=== PATIENT | female | born 1990 | race Caucasian/White ===

== ENCOUNTER 2018-07-06 08:33 | Inpatient (IN) | payer OTHER ==
[~2018-07-06] VITALS: Ht 165.1 cm; Wt 82.6 kg
[2018-07-06] MEDS ORDERED: PREN-93 PO (09:07)
[2018-07-06] MEDS ORDERED: FER325 PO (09:07)
[2018-07-06 09:08] VITALS: BP 124/75; PULSE 95; RESP 20; Ht 165.1 cm; Wt 82.6 kg
[2018-07-06] MEDS ORDERED: LIDOCAINE 1% (MPF) 30 ML INJ INJ PRN (12:00)
[2018-07-06] MEDS ORDERED: BUTORPHANOL 2 MG INJ IV PRN (12:00)
[2018-07-06] MEDS ORDERED: METHYLERGONOVINE 0.2 MG INJ IM PRN (12:00)
[2018-07-06] MEDS ORDERED: CARBOPROST 250 MCG INJ IM PRN (12:00)
[2018-07-06] MEDS ORDERED: IBUPROFEN 600 MG TAB PO PRN (12:00)
[2018-07-06] MEDS ORDERED: OXYTOCIN 30 UNITS/LR 500 ML IV SCH ×2 (12:00)
[2018-07-06] MEDS ORDERED: OXYTOCIN 30 UNITS/LR 500 ML IV PRN (12:00)
[2018-07-06] MEDS ORDERED: MISOPROSTOL 200 MCG TAB PR PRN (12:00)
--- NOTE | 2018-07-06 12:36 | TRIAGE ---
OB Triage Datetime Report Generated by CPN: 07/06/2018 12:35 Datetime: 07/06/2018 11:59 Comments: Report to [facility] L_D RN Datetime: 07/06/2018 11:45 Labor Evaluation Frequency: 2-12 Monitor Mode: External Duration (sec)2399: 40-60 Quality: Mild Pattern: Normal: <= 5 Contractions in 10 Minutes Resting Tone [place]: Relaxed Heart Rate FHR Baseline Rate: 135 Monitor Mode: External US FHR Baseline Changes: No Baseline Change Variability: Moderate 6-25 bpm Accelerations: 15X15 Decelerations: None Category: Category I Pain Assessment Pain Scale: 0 Pain Presence: None/Denies Pain Type: N/A Pain Goal: 3 Datetime: 07/06/2018 11:35 Vaginal Exam Dilatation (cms): 1.0 Effacement (%): 50 Exam By: Dr. Delshad Datetime: 07/06/2018 11:34 Comments: Dr. Delshad at bedside to review strip and u/s results. New order to admit pt for inducti on of labor Datetime: 07/06/2018 11:00 Labor Evaluation Frequency: x3 Monitor Mode: External Duration (sec)2399: 50-80 Quality: Mild Pattern: Normal: <= 5 Contractions in 10 Minutes Resting Tone [place]: Relaxed Heart Rate FHR Baseline Rate: 135 Monitor Mode: External US FHR Baseline Changes: No Baseline Change Variability: Moderate 6-25 bpm Accelerations: 15X15 Decelerations: None Category: Category I Pain Assessment Pain Scale: 0 Pain Presence: None/Denies Pain Type: N/A Pain Goal: 3 Datetime: 07/06/2018 10:03 EGA: 40.2 Datetime: 07/06/2018 10:00 Labor Evaluation Frequency: X1 Duration (sec)2399: 40 Quality: Mild Pattern: Normal: <= 5 Contractions in 10 Minutes Resting Tone [place]: Relaxed Heart Rate FHR Baseline Rate: 135 Monitor Mode: External US FHR Baseline Changes: No Baseline Change Variability: Moderate 6-25 bpm Accelerations: 15X15 Decelerations: None Category: Category I Datetime: 07/06/2018 09:55 Comments: Dr. De Leon was informed of pt's arrival to unit with orders for EFW and BPP for postdate s. EFW 4349, BPP 8/8, RHONDA 11.56. MD stated he is coming to see pt. No new orders received Datetime: 07/06/2018 09:50 Comments: Dr. De Leon paged regarding u/s results Datetime: 07/06/2018 09:25 Comments: Right tilt Datetime: 07/06/2018 09:05 Comments: Ultrasound in progress Datetime: 07/06/2018 09:04 Labor Evaluation Frequency: x1 Duration (sec)2399: 70 Quality: Mild Pattern: Normal: <= 5 Contractions in 10 Minutes Resting Tone [place]: Relaxed Heart Rate FHR Baseline Rate: 140 Monitor Mode: External US FHR Baseline Changes: No Baseline Change Variability: Moderate 6-25 bpm Accelerations: 15X15 Decelerations: None Category: Category I Pain Assessment Pain Scale: 0 Pain Presence: None/Denies Pain Type: N/A Pain Goal: 3 Datetime: 07/06/2018 08:53 EGA: 40.2 Datetime: 07/06/2018 08:47 Stage of : OB Triage Assessment Type: Triage Maternal Assessment Level of Consciousness: Fully Conscious DTR's/Clonus: DTRs 2+; No Clonus Headache: Denies Blurred Vision: No Respiratory Effort: Unlabored; Regular Rhythm; Equal Expansion Breath Sounds, Left: Clear and Equal Breath Sounds, Right: Clear and Equal Nausea/Vomiting: Denies RUQ Epigastric Pain: Denies Lower Extremities Edema: None Upper Extremities Edema: None Facial Edema: None Temperature Route: Axillary Fall Risk Assessment History of Falling: (0) No Secondary Diagnosis: (0) No Ambulatory Aid: (0) Bedrest/Nurse Assist IV Therapy: (0) No Gait: (0) Normal/Bedrest/Immobile Mental Status: (0) Oriented to Own Ability Fall Score: 0 Fall Risk Score Definition: No Risk: No action required Pain Assessment Pain Scale: 0 Pain Presence: None/Denies Pain Type: N/A Pain Goal: 3 Datetime: 07/06/2018 08:44 Stage of : OB Triage Time of Arrival: 07/07/2018 08:26 Arrived By: Ambulatory Arrived From: Home Chief Complaint: Post Dates Movement: Present Contractions: Denies/Absent Rupture of Membranes: Denies Vaginal Bleeding: None Vaginal Discharge: Denies Recent Sexual Intercouse: Denies Abdominal Trauma: Not Applicable Patient Complaints: None Initial Plan: NST, BPP, EFW Temperature Route: Oral Datetime: 07/06/2018 08:26 Stage of : OB Triage
[2018-07-06] MEDS: MISOPROSTOL 50 MCG CAPSULE PO PRN (13:53)
--- NOTE | 2018-07-06 14:09 | HP ---
Date/Time of Note Date/Time of Note DATE: 07/06/18 TIME: 14:07 OB - History Hx of Present Chief Complaint: post date Estimated Due Date: Jul 05, 2018 : 4 Para: 2 Spontaneous : 0 Therapeutic : 1 Care: Good Care Ultrasounds: Normal mid trimester US Obstetrical Complications: None Medical Complications: None Past Family/Social History * Past Medical, Surgical, Family and Obstetric Histories reviewed from chart. GBS Status: Negative OB Admission Exam Vital Signs Vital Signs Vital Signs Date Temp Pulse Resp B/P (MAP) Pulse Ox O2 O2 Flow FiO2 Time Delivery Rate 07/06/18 98.1 95 20 124/75 Room Air 09:08 (91) Physical Exam HEENT: WNL Heart: Rhythm Normal Lungs: Clear, Equal Abdomen: WNL Extremities: Normal Reflexes: Normal Cervical Dilatation: 1cm Effacement: 50% Station: -2 Membranes: Intact Heart Rate: 120's Accelerations: Accelerations Present Decelerations: No Decelerations Varibility: Moderate Last 72 hourBlood Glucose Bedside Glucose - 72 Hours Test 07/06/18 13:57 Bedside Glucose 84 mg/dL (70-220) Last 72 hours Lab Results CBC & BMP 07/06/18 13:44 OB Assessment/Plan Reason for admission: induction of labor Plan: Induction Induction Method: per Misoprostol Protocol SONIA BROWN MD Jul 06, 2018 14:09
[2018-07-06] MEDS: LACTATED RINGER'S 1,000 ML IV SCH ×3 (14:32→21:35)
--- NOTE | 2018-07-06 20:16 | PREAC ---
Date/Time of Note Date/Time of Note DATE: 07/06/18 TIME: 20:15 Anesthesia Eval and Record Evaluation Time Pre-Procedure Interview DATE: 07/06/18 TIME: 20:15 Age 28 Sex female NPO: 8 hrs Preoperative diagnosis labor pain Planned procedure labor epidural Past Medical History Past Medical History: None Surgery & Anesthesia Issues No known issue Meds Anticoagulation: No Beta Kristin within 24 hr: No Reason Beta Kristin not given: Pt. not on B-Kristin Reported Medications Ferrous Sulfate* (Ferrous Sulfate*) 325 Mg Tabec, 325 MG PO DAILY, TAB 07/06/18 Vit No.124/Iron/FA ( Vitamin Tablet) 1 Each Tablet, 1 EACH PO, TAB 07/06/18 Current Medications Lactated Ringer's 1,000 ml @ 125 mls/hr Q8H IV Last administered on 07/06/18at 19:33; Admin Dose 125 MLS/HR; Start 07/06/18 at 11:48 Butorphanol Tartrate (Stadol) 2 mg Q2H PRN IV .PAIN; Start 07/06/18 at 12:00 Lidocaine (Xylocaine 1% (Mpf)) 30 ml ONCE PRN INJ .EPISIOTOMY; Start 07/06/18 at 12:00 Oxytocin/Lactated Ringer's 500 ml @ 500 mls/hr ONCE POST IV ; Start 07/06/18 at 12:00 Oxytocin/Lactated Ringer's 500 ml @ 125 mls/hr POST IV ; Start 07/06/18 at 12:00 Ibuprofen (Motrin) 600 mg ONCE PRN PO .PAIN 1-5; Start 07/06/18 at 12:00 Oxytocin/Lactated Ringer's 500 ml @ 0 mls/hr ONCE PRN IV .VAGINAL BLEEDING; Start 07/06/18 at 12:00 Methylergonovine Maleate (Methergine) 0.2 mg ONCE PRN IM .VAGINAL BLEEDING; Start 07/06/18 at 12:00 Carboprost Tromethamine (Hemabate) 250 mcg ONCE PRN IM .VAGINAL BLEEDING; Start 07/06/18 at 12:00 Misoprostol (Cytotec) 1,000 mcg ONCE PRN NV .VAGINAL BLEEDING; Start 07/06/18 at 12:00 Misoprostol (Cytotec 50 Mcg Capsule) 50 mcg ONCE PRN PO Max of 6 doses Last administered on 07/06/18at 13:53; Admin Dose 50 MCG; Start 07/06/18 at 12:00; Stop 07/07/18 at 23:00 Meds reviewed: Yes Allergies Coded Allergies: No Known Allergies (Verified Allergy, Unknown, 07/06/18) Allergies Reviewed: Yes Labs/Studies Labs Reviewed: Reviewed by anesthesiologist Result Diagram: 07/06/18 1344 Laboratory Tests 07/06/18 13:44 Blood Bank Test 07/06/18 13:44 Antibody Screen NEGATIVE Blood Type O POSITIVE Rh Immune Globulin Candidate NO test: Positive Pre-procedure Exam Last vitals Vital Signs Date Temp Pulse Resp B/P (MAP) Pulse Ox O2 O2 Flow FiO2 Time Delivery Rate 07/06/18 98.1 95 20 124/75 Room Air 09:08 (91) Airway: Adequate mouth opening, Adequate thyromental dist Mallampati: Mallampati III Teeth: Normal Lung: Normal Heart: Normal ASA Physical Status ASA physical status: 2 Emergency: None Planned Anesthetic Neuraxial: Epidural Planned Pain Management Epidural, Parenteral pain med Pre-operative Attestations Prior to commencing anesthesia and surgery, the patient was re-evaluated, there was verification of: *The patient's identity *The results of appropriate recent lab work and preoperative vital signs *The above evaluation not changing prior to induction *Anesthetic plan, risk benefits, alternative and complications discussed with patient/family; questions answered; patient/family understands, accepts and wishes to proceed. REFUGIO BRUNNER MD Jul 06, 2018 20:16
[2018-07-06] MEDS ORDERED: HYDROmorphONE 0.5 MG/0.5 ML SYG IV PRN ×2 (20:30)
[2018-07-06] MEDS ORDERED: ONDANSETRON 4 MG INJ IV PRN (20:30)
[2018-07-06] MEDS ORDERED: ZOLPIDEM 5 MG TAB PO PRN (20:30)
[2018-07-06] MEDS ORDERED: KETOROLAC 30 MG INJ IV PRN (20:30)
[2018-07-06] MEDS ORDERED: NALOXONE (0.4 MG/ML) INJ IV PRN (20:30)
[2018-07-06] MEDS ORDERED: DIPHENHYDRAMINE 50 MG INJ IV PRN (20:30)
--- NOTE | 2018-07-06 23:12 | PAC ---
Date/Time of Note Date/Time of Note DATE: 07/06/18 TIME: 23:11 Post-Anesthesia Notes Post-Anesthesia Note Last documented vital signs Vital Signs Date Temp Pulse Resp B/P (MAP) Pulse Ox O2 O2 Flow FiO2 Time Delivery Rate 07/06/18 98.1 95 20 124/75 Room Air 09:08 (91) Activity: WNL Respiratory function: WNL Cardiovascular function: WNL Mental status: Baseline Pain reasonably controlled: Yes Hydration appropriate: Yes Nausea/Vomiting absent: Yes REFUGIO BRUNNER MD Jul 06, 2018 23:12
[2018-07-07] MEDS: FENTAnyl 2MCG/ML-ROPIV 0.2% 100 ML BAG EPI SCH ×2 (05:18→13:51)
[2018-07-07] MEDS: LACTATED RINGER'S 1,000 ML IV SCH ×2 (05:19→13:49)
[2018-07-07] MEDS: MISOPROSTOL 50 MCG CAPSULE PO PRN ×2 (05:24→09:31)
[2018-07-07] MEDS ORDERED: OXYTOCIN 30 UNITS/LR 500 ML IV SCH (15:00)
--- NOTE | 2018-07-07 20:31 | LDN ---
Date/Time of Note Date/Time of Note DATE: 07/07/18 TIME: 20:27 Delivery Summary 28-year-old 4 para 2-0-1-2 with single intrauterine at 40 weeks and 2 days delivered a viable female over 1 cm first-degree laceration at fourchette. There was a tight nuchal cord which clamp and caught. Rest of body delivered. Baby given to the nurse. Placenta delivered intact and spontaneously with three-vessel cord. Laceration repaired with the 3-0 chromic SH needle. Patient tolerated procedure well Time of delivery 19:09 Weight 9 pound 2 ounces - 4140 g 8 at 1 minutes and 9 at 5 minutes EBL 400 mL Weeks of Gestation 40 weeks and 2 days Placenta Delivered: Spontaneously Meconium: none Episiotomy: No Estimated blood loss: 400 Sponge & Needle done & correct: Yes All needle counts correct: Yes Any foreign bodies felt in the: No Delivery Information Sex Infant Sex: female Apgars 1 Minute: 8 5 Minute: 9 10 Minute: 10 Suctioning Nose & mouth suctioned at richie: Yes Umbilical Cord Umbilical cord with: 3 Vessels Cord presentations: nuchal cord Nuchal cord present X: 1 Cord Blood was obtained: Yes Mother & Baby Disposition Disposition Mom & Baby to Maternity; Good: Yes ESTEFANY SIGALA Jul 07, 2018 20:31
[2018-07-07 21:00] VITALS: BP 127/79; PULSE 83; RESP 18
[2018-07-07] MEDS: DEXTROSE 5%-LR 1,000 ML IV SCH (21:08)
[2018-07-07] MEDS: LACTATED RINGER'S 1,000 ML IV* SCH (21:08)
[2018-07-07] MEDS ORDERED: ACETAMINOPHEN 325 MG TAB PO PRN (21:30)
[2018-07-07] MEDS ORDERED: DIPHENHYDRAMINE 50 MG INJ IV PRN (21:30)
[2018-07-07] MEDS ORDERED: LANOLIN HPA 1 PKT TOP PRN (21:30)
[2018-07-07] MEDS ORDERED: OXYTOCIN 30 UNITS/LR 500 ML IV PRN (21:30)
[2018-07-07] MEDS ORDERED: CARBOPROST 250 MCG INJ IM PRN (21:30)
[2018-07-07] MEDS ORDERED: ZOLPIDEM 5 MG TAB PO PRN (21:30)
[2018-07-07] MEDS ORDERED: MISOPROSTOL 200 MCG TAB PR PRN (21:30)
[2018-07-07] MEDS ORDERED: WITCH HAZEL/GLYCERIN PAD PR PRN (21:30)
[2018-07-07] MEDS ORDERED: METHYLERGONOVINE 0.2 MG INJ IM PRN (21:30)
[2018-07-07] MEDS ORDERED: OXYCODONE/ASPIRIN (4.88/325) TAB PO PRN (21:30)
[2018-07-07] MEDS ORDERED: BENZOCAINE 20% 56 ML SPRAY TOP PRN (21:30)
[2018-07-07] MEDS ORDERED: DIBUCAINE 1% 30 GM OINT TOP PRN (21:30)
[2018-07-07] MEDS ORDERED: SENNA/DOCUSATE NA (8.6MG/50MG) TAB PO PRN (21:30)
[2018-07-07] MEDS ORDERED: ONDANSETRON 4 MG INJ IV PRN (21:30)
[2018-07-07] MEDS: IBUPROFEN 600 MG TAB PO SCH (23:42)
[2018-07-08 02:09] VITALS: BP 121/81; PULSE 78; RESP 17
[2018-07-08 04:00] VITALS: BP 111/56; PULSE 65; RESP 17
[2018-07-08] MEDS: DEXTROSE 5%-LR 1,000 ML IV SCH ×3 (05:08→21:08)
[2018-07-08] MEDS: LACTATED RINGER'S 1,000 ML IV* SCH ×3 (05:08→21:08)
[2018-07-08] MEDS: IBUPROFEN 600 MG TAB PO SCH ×3 (05:51→18:22)
[2018-07-08 08:44] VITALS: BP 106/59; PULSE 70; RESP 18
[2018-07-08 16:23] VITALS: BP 108/60; PULSE 69; RESP 18
--- NOTE | 2018-07-08 19:18 | DS ---
Date/Time of Note Date/Time of Note DATE: 07/08/18 TIME: 19:18 Obstetrical Discharge Record Final Diagnosis Final Diagnosis: Term delivered Vaginal Delivery Obstetrical Delivery: Spontaneous Complications Induction: Yes Condition on Discharge Physical Assessment Voiding: Yes Bowel Movement: Yes Breast: Soft, non-tender, Filling Fundus: Firm Calf Tenderness: No Patient Condition: Stable SONIA BROWN MD Jul 08, 2018 19:18
[2018-07-08 20:00] VITALS: BP 105/63; PULSE 87; RESP 20
[2018-07-09] MEDS: IBUPROFEN 600 MG TAB PO SCH ×2 (00:36→06:59)
[2018-07-09] MEDS: DEXTROSE 5%-LR 1,000 ML IV SCH ×2 (05:08→09:12)
[2018-07-09] MEDS: LACTATED RINGER'S 1,000 ML IV* SCH ×2 (05:08→09:12)
[2018-07-09 08:39] VITALS: BP 121/79; PULSE 62; RESP 18
[2018-07-09] MEDS ORDERED: DIPHTH/TET/ACEL PERTUSS (ADULT) 0.5 ML VIAL IM* ONE (09:00)
[2018-07-09] MEDS ORDERED: MEASLES,MUMPS,RUBELLA VACCINE INJ SC* ONE (09:00)
--- NOTE | 2018-07-12 11:27 | DELSUM ---
Delivery Summary A-C Datetime Report Generated by CPN: 07/12/2018 11:20 DELIVERY PERSONNEL Crusher Operator: Isabell Calhoun MATERNAL INFORMATION Delivery Anesthesia: Epidural Medications in Delivery: LR W/ 30 UNITS PITOCIN Delivery QBL (ml): 400 Placenta Cultured: No Maternal Complications: None LABOR SUMMARY EDC: 07/05/2018 00:00 No. Babies in Womb: 1 Attempted: No Labor Anesthesia: None LABOR INFORMATION Reason for Induction: Postterm Onset of Labor: 07/06/2018 15:50 Complete Dilatation: 07/07/2018 19:00 Cervical Ripening Agents: Cytotec @ 50 MCG Oxytocin: Induction Group B Beta Strep: Negative Antibiotics # of Doses: 0 Steroids Given: None Reason Steroids Not Administered: Not Applicable MEMBRANES Membranes Rupture Method: Artificial Rupture of Membranes: 07/07/2018 09:35 Length of Rupture (hr): 9.57 Amniotic Fluid Color: Clear Amniotic Fluid Amount: Moderate Amniotic Fluid Odor: None STAGES OF LABOR Stage 1 hr: 27 Stage 1 min: 10 Stage 2 hr: 0 Stage 2 min: 9 Stage 3 hr: 0 Stage 3 min: 9 Total Time in Labor hr: 27 Total Time in Labor min: 28 VAGINAL DELIVERY Episiotomy: None Laceration Extension: First Degree Laceration Type: Perineal Laceration Repair: Yes Initial Vag Sponge Count: 10 Final Vag Sponge Count: 20 Initial Vag Sharps Count: 1 Final Vag Sharps Count: 1 Sponge Count Correct: Yes; Vaginal Sweep Performed Sharps Count Correct: Yes BABY A INFORMATION Delivery Date/Time: 07/07/2018 19:09 Method of Delivery: Vaginal Born in Route : No : N/A Forceps: N/A Vacuum Extraction: N/A Shoulder Dystocia : N/A SHOULDER DYSTOCIA BABY A Delivery Date/Time: 07/07/2018 19:09 PRESENTATION/POSITION BABY A Presentation: Cephalic Cephalic Presentation: Vertex Vertex Position: Right Occipital Anterior Breech Presentation: N/A PLACENTA INFORMATION BABY A Placenta Delivery Time : 07/07/2018 19:18 Placenta Method of Delivery: Spontaneous Placenta Status: Delivered SCORES BABY A Heart Rate 1 min: >100 bpm Resp Effort 1 min: Good Cry Reflex Irritability 1 min: Cough/Sneeze/Pulls Away Muscle Tone 1 min: Some Flexion of Extrem Color 1 min: Body [employer], Extremit Blue Resuscitation Effort 1 min: Tactile Stimulation SCORE 1 MIN: 8 Heart Rate 5 min: >100 bpm Resp Effort 5 min: Good Cry Reflex Irritability 5 min: Cough/Sneeze/Pulls Away Muscle Tone 5 min: Active Motion Color 5 min: Body [employer], Extremit Blue Resuscitation Effort 5 min: Tactile Stimulation SCORE 5 MIN: 9 INFANT INFORMATION BABY A Gestational Age at Delivery: 40.2 Gestational Status: Full Term- 39- 40.6 Weeks Outcome : Liveborn Infant Condition : Stable Sex: Female IDENTIFICATION/MEDS BABY A ID Band Number: [id number] ID Band Location: Right Leg; Left Arm Sensor Applied: Yes Sensor Number: [id number] Sensor Location : Cord Clamp Vitamin K Given : Not Given Erythromycin Given: Not Given WEIGHT/LENGTH BABY A Birthweight (gm): 4140 Weight (lb): 9 Weight (oz): 2 Infant Length (in): 21.00 Length (cm): 53.34 CORD INFORMATION BABY A No. Cord Vessels: 3 Nuchal Cord : Around Neck x1, Tight Cord Blood Taken: Yes Suction: Mouth; Nose ASSESSMENT BABY A Infant Complications: None Physical Findings at Delivery: Within Normal Limits Infant Respirations: Appears Normal Regulatory Specialist/ALS Called : Yes Infant Care By: ARIEL QUINN Transferred To: Remains with Mother
== END 2018-07-09 14:49 | disposition home or self-care (01) | DRG 807 ==
LOC: OBT 08:33 → L-D 08:34 → OBT 11:53 → L-D 11:56 → PP1 07-07 20:36 → L-D 07-07 20:50 → PP1 07-07 20:57
PROVIDERS: ADMIT Obstetrics & Gynecology; ATTEND Obstetrics & Gynecology
PROC: 10E0XZZ Delivery of Products of Conception, External Approach (ICD-10-PCS; principal; 2018-07-07)
PROC: 0HQ9XZZ Repair Perineum Skin, External Approach (ICD-10-PCS; 2018-07-07)
PROC: 3E033VJ Introduction of Other Hormone into Peripheral Vein, Percutaneous Approach (ICD-10-PCS; 2018-07-07)
DX: O48.0 Post-term pregnancy (principal); O69.81X0 Labor and delivery complicated by cord around neck, without compression, not applicable or unspecified; Z37.0 Single live birth; O70.0 First degree perineal laceration during delivery; Z3A.40 40 weeks gestation of pregnancy
CPT/HCPCS: 62319; 76815; 76818; 82962; 85025; 85610; 85730; 86592; 86850; 86900; 86901; 87340; G0463; J2210; J2590; J3010; J7120; J7121